=== PATIENT | male | born 1985 | race Caucasian/White ===

== ENCOUNTER 2017-01-04 17:43 | Emergency (ER) | payer OTHER ==
[~2017-01-04] VITALS: Ht 182.9 cm; Wt 82.7 kg
[2017-01-04 17:47] VITALS: BP 138/90
[2017-01-04 20:01] LABS: PATH.CAST-FLAG NOT PRESENT; SPERM-FLAG NOT PRESENT; SRC-FLAG NOT PRESENT; XTAL-FLAG NOT PRESENT; YLC-FLAG NOT PRESENT
== END 2017-01-04 21:01 | disposition home or self-care (01) ==
LOC: ED 20:55
DX: N50.811 Right testicular pain (principal)
CPT/HCPCS: 76870; 81001; 99285